=== PATIENT | female | born 1945 | race Caucasian/White ===

== ENCOUNTER 2024-03-01 21:59 | Emergency (ER) | payer MEDICARE ==
[2024-03-01] MEDS ORDERED: Ondansetron ODT 4 MG TAB ONE (22:36)
== END 2024-03-01 22:55 | disposition home or self-care (01) ==
LOC: NAV ERS 21:59
DX: R42 Dizziness and giddiness (principal); R11.0 Nausea; I10 Essential (primary) hypertension; Z79.899 Other long term (current) drug therapy
CPT/HCPCS: 99283; Q0162